=== PATIENT | male | born 1995 | race Caucasian/White ===

== ENCOUNTER 2021-05-29 21:44 | Emergency (ER) | payer SELFPAY ==
[~2021-05-29] VITALS: Ht 175.3 cm; Wt 114.0 kg
[2021-05-29 23:17] VITALS: BP 164/86
[2021-05-29] MEDS ORDERED: BACITRACIN ZINC OINT UDPKT TOP ONE (23:30)
[2021-05-29] MEDS ORDERED: LIDOCAINE HCL/PF 1% 10 MG/ML 5ML VIAL INFIL ONE (23:30)
[2021-05-29] MEDS ORDERED: TETANUS, DIPHTHERIA, PERTUSSIS VAC/PF 0.5ML (>10YR OLD) IM ONE (23:30)
[2021-05-30] MEDS ORDERED: LIDOCAINE HCL 1% 20ML VIAL (Pyxis) INJ INFIL NR
== END 2021-05-30 02:47 | disposition left against medical advice (07) ==
LOC: ER 21:44
DX: Z53.21 Procedure and treatment not carried out due to patient leaving prior to being seen by health care provider (principal)
CPT/HCPCS: J3490

== ENCOUNTER 2022-09-23 17:49 | Emergency (ER) | payer SELFPAY ==
[~2022-09-23] VITALS: Ht 172.7 cm; Wt 99.0 kg
[2022-09-23 17:58] VITALS: BP 156/104
== END 2022-09-23 21:45 | disposition left against medical advice (07) ==
LOC: ER 17:49
DX: Z53.21 Procedure and treatment not carried out due to patient leaving prior to being seen by health care provider (principal)
CPT/HCPCS: 99281